=== PATIENT | male | born 1965 | race Caucasian/White ===

== ENCOUNTER → 2017-12-16 | Outpatient (CLI) | payer BC ==
[~2017-12-16] MED LIST: NONE PER PT
== END ==
LOC: STAR 08:16
PROVIDERS: ATTEND Surgery
DX: Z02.9 Encounter for administrative examinations, unspecified (principal)

== ENCOUNTER 2017-12-23 13:02 | Day surgery (SDC) | payer BC ==
[~2017-12-23] VITALS: Ht 172.7 cm; Wt 84.8 kg
[~2017-12-23 13:02] MED LIST changes: +BUPIVACAINE/PF 0.5% ONE; +EPINEPHRINE 1 MG/ML, 1ML ONE
[2017-12-23 13:18] VITALS: BP 134/84
[2017-12-23] MEDS ORDERED: LACTATED RINGERS 1,000 ML IV SCH (13:21)
[2017-12-23] MEDS ORDERED: MIDAZOLAM 1 MG/ML, 2ML ONE (13:34)
[2017-12-23] MEDS ORDERED: FENTANYL PF 250 MCG/5ML ONE (13:34)
[2017-12-23] MEDS ORDERED: ROCURONIUM 10 MG/ML,10ML ONE (14:26)
[2017-12-23] MEDS ORDERED: CEFAZOLIN 1,000 MG ONE (14:26)
[2017-12-23] MEDS ORDERED: GLYCOPYRROLATE 0.2MG/1ML, 5ML ONE (14:26)
[2017-12-23] MEDS ORDERED: DEXAMETHASONE 4 MG/ML, 1ML ONE (14:26)
[2017-12-23] MEDS ORDERED: NEOSTIGMINE 1 MG/ML, 10ML ONE (14:26)
[2017-12-23] MEDS ORDERED: SUCCINYLCHOLINE 20 MG/ML, 10ML ONE (14:26)
[2017-12-23] MEDS ORDERED: PROPOFOL 10 MG/ML, 20ML ONE (14:26)
[2017-12-23] MEDS ORDERED: ONDANSETRON 2MG/ML, 2ML ONE (14:26)
[2017-12-23] MEDS ORDERED: OXYcodone 5 MG/5 ML ORAL.SOL UDC PO PRN ×2 (15:30→16:00)
[2017-12-23] MEDS ORDERED: KETOROLAC 30 MG/1 ML ONE (15:36)
[2017-12-23] MEDS ORDERED: ACETAMINOPHEN 650 MG/20.3 ML UDC ONE (15:36)
[2017-12-23] MEDS ORDERED: OXYcodone 5 MG/5 ML ORAL.SOL UDC ONE (15:37)
[2017-12-23] MEDS ORDERED: FENTANYL PF 100 MCG/2ML ONE (15:45)
[2017-12-23] MEDS ORDERED: hydrALAzine 20 MG/ML, 1ML IV PRN (16:00)
[2017-12-23] MEDS ORDERED: PROMETHAZINE 25 MG/ML, 1ML IV PRN (16:00)
[2017-12-23] MEDS ORDERED: MEPERIDINE/PF 25MG/0.5ML IVPush PRN (16:00)
[2017-12-23] MEDS ORDERED: ACETAMINOPHEN 325 MG TABLET PO PRN (16:00)
[2017-12-23] MEDS ORDERED: FENTANYL PF 100 MCG/2ML IV PRN (16:00)
[2017-12-23] MEDS ORDERED: ALBUTEROL SULFATE 2.5 MG/3 ML NPPB PRN (16:00)
[2017-12-23] MEDS ORDERED: KETOROLAC 30 MG/1 ML IV PRN (16:00)
== END 2017-12-23 17:40 | disposition home or self-care (01) ==
LOC: OR 13:02
PROVIDERS: ATTEND Surgery
DX: K40.90 Unilateral inguinal hernia, without obstruction or gangrene, not specified as recurrent (principal)
CPT/HCPCS: 49650; C1781; J0171; J0330; J0690; J1100; J1885; J2250; J2405; J2704; J2710; J3010; J3490; J7120; S2900